=== PATIENT | female | born 1930 | race Caucasian/White ===

== ENCOUNTER → 2016-11-03 | Outpatient (CLI) | payer MEDICARE, OTHER ==
[~2016-11-03] MED LIST: ACET-2469 PO; ACET-77 PO; ASCO1TAB36 PO; ASP325T PO; ASP81TEC PO; ASPI-983 PO; Aspirin PO; BACL10TA PO; CALC-687 PO; CALC-80 PO; CALC-9 PO; CALC3.7S2 NS; CARV12.53 PO; CARV3.122 PO; CARV3.12T PO; CARV6.25 PO; CARV6.252 PO; CEFU500T5 PO; CLOP75TA28 PO; CRV25T; DOCU100C37 PO; Diazepam PO; ESTER C PO; ESTRACE; FENO145T20 PO; FISH OIL 1,2001 EAC1 PO; FRSM40T PO; FURO20TA4 PO; FURO40TA4 PO; GABA-488 PO; GLUC-174 PO; HYDR-3714 PO; Hydrocodone Bit/Acetaminophen PO; IRON1CAP9 PO; KETO-22 PO; LEVO112T55 PO; LEVO125T6 PO; LVT.112T PO; LVT.1T; MAG-59 PO; MAGN1TAB31 PO; MAGN400O7 PO; MAGN400T6 PO; METAMUCIL PO; METAMUCIL POWD283 GM PO; METO50TA7 PO; MG T1TAB PO; MGX400T; MTP50T PO; MULT1TAB63 PO; MULT1TAB69 PO; NAPR-243 PO; NAPR1TAB25 PO; NAPR220C11 PO; NFAMINITAB PO; Naproxen PO; OMEP20CA12 PO; OMG1KC PO; OSTEO BI-FLEX; PEG250PW; PNT40TEC; PNT40TEC PO; POLY119P PO; POTA99TA7 PO; POTASSIUM GLUCONATE PO; RMP5C PO; ROSU10TA12; ROSU10TA12 PO; TICA90TA PO; TRAM50TA2 PO; Tramadol Hcl PO; Trazodone Hcl PO; UMEC1BLS IH; [UNRECOGNIZED DRUG - CODE] PO; [UNRECOGNIZED DRUG - OTHER]
--- OUTSIDE RECORDS SUMMARY | 2016-11-03 13:05 | XMS REPORT | Continuity of Care Document ---
Author Author [facility] Organization [facility] Address Unknown Phone Unavailable Care Team Providers Care House Cleaner Name Role Phone ACOSTA HARPER MD PCP Insurance Providers Payer Name Policy Number Subscriber Name Relationship Wps Medicare [id number] Mary Polanco 18 Self / Same As Patient Comm Crossover Enter Ins Name [id number] Mary Polanco 18 Self / Same As Patient Advance Directives Directive Response Recorded Date/Time Advance Directives Yes 03/09/15 10:06am Health Care Power of Instructional Design Specialist Yes 03/09/15 10:06am Organ Donor No 03/09/15 10:06am Resuscitation Status Full Code 03/09/15 10:06am Problems Medical Problems Problem Onset Date Status Chest pain Unknown Active Fracture four ribs-closed Unknown Active Medications Medication Dose Route Sig Days/Qty Instructions Order Date Discontinued Date Status Levothyroxine Sodium 05/09/07 05/12/11 Discontinued Rosuvastatin Calcium 05/09/07 05/12/11 Discontinued Magnesium Oxide 05/09/07 05/12/11 Discontinued Furosemide 40 Mg PO DAILY @ 1200 05/09/07 Active Fish Oil 1,000 Mg PO THREE TIMES A DAY 05/09/07 10/31/13 Discontinued Aspirin 325 Mg PO DAILY 05/09/07 08/15/12 Discontinued [Virginie C] 1,000 Mg PO DAILY 05/09/07 10/31/13 Discontinued Multivitamins 1 Tab PO 1200 05/09/07 Active Ramipril 2.5 Mg PO DAILY 05/09/07 04/30/13 Discontinued Carvedilol 05/09/07 05/12/11 Discontinued Pantoprazole Sodium 05/09/07 05/12/11 Discontinued Polyethylene Glycol 05/09/07 05/12/11 Discontinued Carvedilol (Coreg) 1 Each PO TWICE A DAY 05/12/11 07/30/12 Discontinued Levothyroxine Sodium 112 Mcg PO DAILY 05/12/11 03/05/15 Discontinued Inulin 197.2 Gm PO DAILY 05/12/11 10/31/13 Discontinued Naproxen 1 Each PO TID PRN 20 Qty FOR PAIN 05/12/11 07/30/12 Discontinued Magnesium Oxide 400 Mg PO DAILY 10/20/11 07/30/12 Discontinued Potassium 99 Mg PO 1200 10/20/11 Active Baclofen (Lioresal) 1 Each PO THREE TIMES A DAY PRN 14 Qty 10/20/11 Discontinued Ketorolac Tromethamine 10 Mg PO EVERY 8HRS PRN 15 Qty 10/20/11 Discontinued Carvedilol 1 Each PO TWICE A DAY 07/30/12 08/14/12 Discontinued Naproxen Sodium 440 Mg PO DAILY 07/30/12 08/15/12 Discontinued Metoprolol Succinate 50 Mg PO BEDTIME 08/14/12 04/30/13 Discontinued Aspirin 81 Mg PO 1200 08/15/12 Active Pantoprazole Sod 40 Mg PO DAILY 08/15/12 04/30/13 Discontinued Ticagrelor 90 Mg PO TWICE A DAY 08/15/12 04/30/13 Discontinued Rosuvastatin Calcium 10 Mg PO DAILY 08/15/12 04/30/13 Discontinued Omeprazole 20 Mg PO DAILY 04/30/13 Active Naproxen Sodium 440 Mg PO DAILY PRN PAIN 04/30/13 03/15/15 Discontinued Carvedilol (Coreg) 3.125 Mg PO TWICE A DAY 04/30/13 03/15/15 Discontinued Clopidogrel Bisulfate 75 Mg PO DAILY @ 1200 04/30/13 03/05/15 Discontinued [place]-3 Fatty Acids/Fish Oil 1,200 Mg PO 1200,HS 10/31/13 Active [Estrace] 10/31/13 10/31/13 Discontinued [Fenfibrate] 10/31/13 10/31/13 Discontinued [Metamucil] 1 Tab PO DAILY 10/31/13 10/31/13 Discontinued Calcium Carbonate/Vitamin D3 1 Tab PO DAILY 10/31/13 03/05/15 Discontinued Gluc/Pascual-MSM#1/C/Ollie/Buster/Bor 1 Tab PO 1200 10/31/13 Active Fenofibrate Nanocrystallized 145 Mg PO BEDTIME 10/31/13 Active Ascorbate Calcium/Bioflav 1,000 Mg PO DAILY 10/31/13 10/31/13 Discontinued Psyllium Seed/Aspartame 1 Tbs PO BEDTIME 10/31/13 Active Al Hydrox/Mg Hydrox/Simeth 2 Tab PO TWICE A DAY PRN INDIGESTION NEEDED FOR INDIGESTION 10/31/13 03/05/15 Discontinued Ramipril 5 Mg PO DAILY 30 Qty 11/03/13 03/05/15 Discontinued Cefuroxime Axetil (Ceftin) 1 Each PO TWICE A DAY 7 Days 11/03/1303/05 Discontinued Levothyroxine Sodium 125 Mcg PO DAILY 03/05/15 Active Calcium Carbonate/Mag Oxide/Zn 1 Tab PO 1200 03/05/15 Active Vitamin C/Vitamin E 1 Tab PO 1200 03/05/15 Active Carvedilol 6.25 Mg PO TWICE A DAY 30 Qty 03/15/15 Active [Naproxen] 250 Mg PO TWICE A DAY WITH MEALS 60 Qty 03/15/15 Active [Tramadol Hcl] 50 Mg PO FOUR TIMES DAILY PRN pain 60 Qty 03/15/15 Active [Trazodone Hcl] 50 Mg PO BEDTIME 30 Qty 03/15/15 Active Social History Social History Problem Response Recorded Date/Time Alcohol Use Denies Use 03/09/2015 10:07am Recreational Drug Use No 03/09/2015 10:07am Recent Foreign Travel No 10/31/2013 3:00pm Recent Infectious Disease Exposure No 03/09/2015 10:07am Hospitalization with Isolation Denies 03/15/2015 1:17pm Sexually Transmitted Disease No 03/09/2015 10:07am HIV/AIDS No 03/09/2015 10:07am Do you dip or chew tobacco? No 03/09/2015 10:09am Hospital Discharge Instructions Patient Instructions Physician Instructions Patient Instructions/FollowUp: follow up with ravi in two weeks call for any acute concerns, no lifting greater than 5 pounds x 1 week, then 10 pounds in two weeks Patient Problems: rib fracture hypertension weakness insomnia [place]IA [place], [place] DISCHARGE ORDERS Height (Feet): 5 Height (Inches): 5.00 Weight (Pounds): 148 Weight (Ounces): 5.0 Reason Pt Homebound yes - pt cannot drive I Have Seen Pt Izfx-le-Wwse: Yes Date of Face to Face: March 15, 2015 Discharged To: Home Diagnosis/Conditions HH Order: rib fracture hypertension weakness insomnia *I certify that based on my findings, the following services are medically necessary Home Health Services: Services: Nursing Services, Non Destructive Testing Specialist-Evaluate & Treat, Physical Therapy-Evaluate & Treat My clinical findings support the need for the above services; see Diagnosis. Dicharge Diet: Regular Diet Daily Activity as Tolerated: Yes New, Converted, or Re-newed RX: Call to Patient Pharmacy I certify that this patient is under my care and that I, a nurse practitioner or a physician; a physician's assistant working with me, had a face to face encounter that - meets the physician face to face encounter requirements with this patient as dated. Care Plan Patient Instructions:: follow up with ravi in two weekscall for any acute concerns, no lifting greater than 5 pounds x 1 week,then 10 pounds in two weeks Patient Problems: rib fracturehypertensionweaknessinsomnia Plan of Care Discharge Date 03/15/15 11:30am Disposition 30 STILL A PATIENT Instructions/Education Provided Rib Fracture (DC) Prescriptions See Medications Section Referrals ravi (Unspecified) 2 Weeks Functional Status Query Response Date Recorded Patient Orientation Normal For Age March 15, 2015 11:54am Allergies, Adverse Reactions, Alerts Allergen Type Severity Reaction Status Last Updated NKANo Known Allergies Allergy Unknown Active 05/09/07 Immunizations Name Given Type Date of Pneumonia Vaccine 07/29/11 Historical Date of Influenza Vaccine 09/01/13 Historical Vital Signs Acute Vital Signs Vital Response Date/Time Temperature (Fahrenheit) 97.5 degrees F (97.6 - 99.5) Temperature (Calculated Celsius) 36.22839 degrees C (36.4 - 37.5) Temperature Source Temporal Pulse Rate (adult) 72 bpm (60 - 90) Respiratory Rate 18 bpm (12 - 24) O2 Sat by Pulse Oximetry 95 % (88 - 100) Blood Pressure 156/78 mm Hg Pain Pain Intensity 6 Height (Feet) 5 feet Height (Inches) 5.00 inches Height (Calculated Centimeters) 165.296182 cm Weight (Pounds) 148 pounds Weight (Ounces) 5.0 oz Weight (Calculated Grams) 00855.419 gm Weight (Calculated Kilograms) 67.980117 kilograms Calculated BMI 24.63 Results Laboratory Results Test Name Result Units Flags Reference Collection Date/Time Result Date/ Time Comments White Blood Count 7.4 10^3/uL 4.3-11.0 03/08/2015 4:55am 03/08/2015 5: 59am Red Blood Count 4.17 10^6/uL L 4.35-5.85 03/08/2015 4:55am 03/08/2015 5: 59am Hemoglobin 12.4 G/DL 11.5-16.0 03/08/2015 4:55am 03/08/2015 5:59am Hematocrit 37 % 35-52 03/08/2015 4:55am 03/08/2015 5:59am Mean Corpuscular Volume 89 FL 80-99 03/08/2015 4:55am 03/08/2015 5: 59am Mean Corpuscular Hemoglobin 30 PG 25-34 03/08/2015 4:55am 03/08/2015 5: 59am Mean Corpuscular Hemoglobin Concent 33 G/DL 32-36 03/08/2015 4:55am 08/2015 5:59am Red Cell Distribution Width 13.7 % 10.0-14.5 03/08/2015 4:55am 2014 5:59am Platelet Count 208 10^3/uL 130-400 03/08/2015 4:55am 03/08/2015 5:59am Mean Platelet Volume 11.2 FL H 7.4-10.4 03/08/2015 4:55am 03/08/2015 5: 59am Neutrophils (%) (Auto) 70 % 42-75 03/08/2015 4:55am 03/08/2015 5:59am Lymphocytes (%) (Auto) 19 % 12-44 03/08/2015 4:55am 03/08/2015 5:59am Monocytes (%) (Auto) 10 % 0-12 03/08/2015 4:55am 03/08/2015 5:59am Eosinophils (%) (Auto) 1 % 0-10 03/08/2015 4:55am 03/08/2015 5:59am Basophils (%) (Auto) 0 % 0-10 03/08/2015 4:55am 03/08/2015 5:59am Neutrophils # (Auto) 5.2 X 10^3 1.8-7.8 03/08/2015 4:55am 03/08/2015 5: 59am Lymphocytes # (Auto) 1.4 X 10^3 1.0-4.0 03/08/2015 4:55am 03/08/2015 5: 59am Monocytes # (Auto) 0.7 X 10^3 0.0-1.0 03/08/2015 4:55am 03/08/2015 5: 59am Eosinophils # (Auto) 0.1 10^3/uL 0.0-0.3 03/08/2015 4:55am 03/08/2015 5 :59am Basophils # (Auto) 0.0 10^3/uL 0.0-0.1 03/08/2015 4:55am 03/08/2015 5: 59am Prothrombin Time 13.4 SEC 12.2-14.7 03/05/2015 9:13pm 03/05/2015 9: 59pm INR Comment 1.0 0.8-1.4 03/05/2015 9:13pm 03/05/2015 9:59pm INTERPRETIVE DATA SUGGESTED THERAPEUTIC RANGE FOR INR'S: VENOUS THROMBOSIS, PULMONARY EMBOLISM, OR PREVENTION OF SYSTEMIC EMBOLISM (EG. IN ATRIAL FIBRILLATION): 2.0 - 3.0 MECHANICAL PROSTHETIC HEART VALVES: 2.5 - 3.5* *NOTE: INR'S UP TO 4.5 MAY BE NECESSARY IN SELECTED GROUPS OF HIGH RISK PATIENTS. SIXTH CITIZEN [place] COLLEGE OF CHEST PHYSICIANS CONSENSUS CONFERENCE ON ANTITHROMBOTIC THERAPY (2000). Urine Color YELLOW 03/05/2015 6:00pm 03/05/2015 6:44pm Urine Clarity CLEAR 03/05/2015 6:00pm 03/05/2015 6:44pm Urine pH 7 5-9 03/05/2015 6:00pm 03/05/2015 6:44pm Urine Specific [place] 1.005 * 1.016-1.022 03/05/2015 6:00pm 2014 6:44pm Urine Protein NEGATIVE NEGATIVE 03/05/2015 6:00pm 03/05/2015 6:44pm Urine Glucose (UA) NEGATIVE NEGATIVE 03/05/2015 6:00pm 03/05/2015 6: 44pm Urine RBC (Auto) NEGATIVE NEGATIVE 03/05/2015 6:00pm 03/05/2015 6: 44pm Urine Ketones NEGATIVE NEGATIVE 03/05/2015 6:00pm 03/05/2015 6:44pm Urine Nitrite NEGATIVE NEGATIVE 03/05/2015 6:00pm 03/05/2015 6:44pm Urine Bilirubin NEGATIVE NEGATIVE 03/05/2015 6:00pm 03/05/2015 6: 44pm Urine Urobilinogen NORMAL MG/DL NORMAL 03/05/2015 6:00pm 03/05/2015 6: 44pm Urine Leukocyte Esterase 1+ * NEGATIVE 03/05/2015 6:00pm 03/05/2015 6: 44pm Urine RBC RARE /HPF 03/05/2015 6:00pm 03/05/2015 6:44pm Urine WBC 2-5 /HPF 03/05/2015 6:00pm 03/05/2015 6:44pm Urine Bacteria FEW /HPF * 03/05/2015 6:00pm 03/05/2015 6:44pm Urine Squamous Epithelial Cells 0-2 /HPF 03/05/2015 6:00pm 2014 6:44pm Urine Crystals NONE /LPF 03/05/2015 6:00pm 03/05/2015 6:44pm Urine Casts NONE /LPF 03/05/2015 6:00pm 03/05/2015 6:44pm Urine Mucus NEGATIVE /LPF 03/05/2015 6:00pm 03/05/2015 6:44pm Urine Culture Indicated NO 03/05/2015 6:00pm 03/05/2015 6:44pm Sodium Level 138 MMOL/L 135-145 03/08/2015 4:55am 03/08/2015 6:20am Potassium Level 3.6 MMOL/L 3.6-5.0 03/08/2015 4:55am 03/08/2015 6:20am Chloride Level 106 MMOL/L 98-107 03/08/2015 4:55am 03/08/2015 6:20am Carbon Dioxide Level 21 MMOL/L 21-32 03/08/2015 4:55am 03/08/2015 6: 20am Blood Urea Nitrogen 16 MG/DL 7-18 03/08/2015 4:55am 03/08/2015 6:20am Creatinine 0.86 MG/DL 0.60-1.30 03/08/2015 4:55am 03/08/2015 6:20am BUN/Creatinine Ratio 19 03/08/2015 4:55am 03/08/2015 6:20am Estimat Glomerular Filtration Rate > 60 03/08/2015 4:55am 2014 6:20am GFR INTERPRETIVE DATA UNITS FOR ESTIMATED GFR (eGFR): mL/min/1.73 M2 REFERENCE RANGE FOR ESTIMATED GFR (eGFR) eGFR NORMAL eGFR >60 MODERATELY DECREASED eGFR 30-59 SEVERLY DECREASED eGFR 15-29 KIDNEY FAILURE <15 (OR DIALYSIS) Glucose Level 108 MG/DL H 70-105 03/08/2015 4:55am 03/08/2015 6:20am Glucometer 119 MG/DL H 70-110 03/05/2015 8:08am 03/05/2015 8:15am Calcium Level 9.5 MG/DL 8.5-10.1 03/08/2015 4:55am 03/08/2015 6:20am Total Bilirubin 0.6 MG/DL 0.1-1.0 03/08/2015 4:55am 03/08/2015 6:20am Alkaline Phosphatase 54 U/L 40-136 03/08/2015 4:55am 03/08/2015 6:20am Aspartate Amino Transf (AST/SGOT) 18 U/L 5-34 03/08/2015 4:55am 2014 6:20am Alanine Aminotransferase (ALT/SGPT) 9 U/L 0-55 03/08/2015 4:55am 2014 6:20am Total Protein 6.2 G/DL L 6.4-8.2 03/08/2015 4:55am 03/08/2015 6:20am Albumin 3.6 G/DL 3.2-4.5 03/08/2015 4:55am 03/08/2015 6:20am White Blood Count 7.3 10^3/uL 4.3-11.0 03/10/2015 4:37am 03/10/2015 5: 06am Red Blood Count 3.97 10^6/uL L 4.35-5.85 03/10/2015 4:37am 03/10/2015 5: 06am Hemoglobin 11.6 G/DL 11.5-16.0 03/10/2015 4:37am 03/10/2015 5:06am Hematocrit 36 % 35-52 03/10/2015 4:3703/10/2015 5:06am Mean Corpuscular Volume 89 FL 80-99 03/10/2015 4:3703/10/2015 5: 06am Mean Corpuscular Hemoglobin 29 PG 25-34 03/10/2015 4:3703/10/2015 5: 06am Mean Corpuscular Hemoglobin Concent 33 G/DL 32-36 03/10/2015 4:37 5:06am Red Cell Distribution Width 13.9 % 10.0-14.5 03/10/2015 4:372014 5:06am Platelet Count 216 10^3/uL 130-400 03/10/2015 4:3703/10/2015 5:06am Mean Platelet Volume 11.0 FL H 7.4-10.4 03/10/2015 4:3703/10/2015 5: 06am Neutrophils (%) (Auto) 57 % 42-75 03/10/2015 4:3703/10/2015 5:06am Lymphocytes (%) (Auto) 29 % 12-44 03/10/2015 4:3703/10/2015 5:06am Monocytes (%) (Auto) 11 % 0-12 03/10/2015 4:3703/10/2015 5:06am Eosinophils (%) (Auto) 3 % 0-10 03/10/2015 4:3703/10/2015 5:06am Basophils (%) (Auto) 0 % 0-10 03/10/2015 4:3703/10/2015 5:06am Neutrophils # (Auto) 4.1 X 10^3 1.8-7.8 03/10/2015 4:3703/10/2015 5: 06am Lymphocytes # (Auto) 2.1 X 10^3 1.0-4.0 03/10/2015 4:3703/10/2015 5: 06am Monocytes # (Auto) 0.8 X 10^3 0.0-1.0 03/10/2015 4:3703/10/2015 5: 06am Eosinophils # (Auto) 0.2 10^3/uL 0.0-0.3 03/10/2015 4:3703/10/2015 5 :06am Basophils # (Auto) 0.0 10^3/uL 0.0-0.1 03/10/2015 4:3703/10/2015 5: 06am Sodium Level 136 MMOL/L 135-145 03/10/2015 4:3703/10/2015 5:32am Potassium Level 3.7 MMOL/L 3.6-5.0 03/10/2015 4:3703/10/2015 5:32am Chloride Level 108 MMOL/L H 98-107 03/10/2015 4:3703/10/2015 5:32am Carbon Dioxide Level 20 MMOL/L L 21-03/10/2015 4:3703/10/2015 5: 32am Blood Urea Nitrogen 18 MG/DL 7-18 03/10/2015 4:3703/10/2015 5:32am Creatinine 0.85 MG/DL 0.60-1.30 03/10/2015 4:3703/10/2015 5:32am BUN/Creatinine Ratio 21 03/10/2015 4:3703/10/2015 5:32am Estimat Glomerular Filtration Rate > 60 03/10/2015 4:372014 5:32am GFR INTERPRETIVE DATA UNITS FOR ESTIMATED GFR (eGFR): mL/min/1.73 M2 REFERENCE RANGE FOR ESTIMATED GFR (eGFR) eGFR NORMAL eGFR >60 MODERATELY DECREASED eGFR 30-59 SEVERLY DECREASED eGFR 15-29 KIDNEY FAILURE <15 (OR DIALYSIS) Glucose Level 104 MG/DL 70-105 03/10/2015 4:3703/10/2015 5:32am Calcium Level 8.9 MG/DL 8.5-10.1 03/10/2015 4:3703/10/2015 5:32am Total Bilirubin 0.4 MG/DL 0.1-1.0 03/10/2015 4:3703/10/2015 5:32am Alkaline Phosphatase 54 U/L 40-136 03/10/2015 4:3703/10/2015 5:32am Aspartate Amino Transf (AST/SGOT) 15 U/L 5-34 03/10/2015 4:372014 5:32am Alanine Aminotransferase (ALT/SGPT) 8 U/L 0-55 03/10/2015 4:37am 2014 5:32am Total Protein 5.7 G/DL L 6.4-8.2 03/10/2015 4:37am 03/10/2015 5:32am Albumin 3.3 G/DL 3.2-4.5 03/10/2015 4:37am 03/10/2015 5:32am Procedures No known history of procedures. Encounters Encounter Location Date/Time Discharged Inpatient Via [facility] 03/09/15 9:13am Discharged Inpatient Via [facility] 03/05/15 8:20am
--- NOTE | 2016-11-05 16:08 | ECHOCARDIOGRAPHY REPORT ---
PROCEDURE PHYSICIAN: NARENDRA CURRIE DATE OF PROCEDURE: 11/03/2016 TWO DIMENSIONAL ECHOCARDIOGRAM REPORT PRIMARY PHYSICIAN: OTHER PHYSICIAN: REFERRING PHYSICIAN: Dr. Татьяна Payan ORDERING PHYSICIAN: INDICATION FOR THE PROCEDURE: 1. Coronary artery disease. 2. Hypertension. MEASUREMENTS DERIVED VALUES LV DIAMETER (LAX) NORMALS NORMALS Diastolic 3.7 (3.6-5.2) Eject. Fract. 60% (60%+/-6%) Systolic (2.3-3.9) Diastolic Vol. % Shortening (0.22-0.42) Systolic Vol. Aortic Root IVS THICKNESS Diastolic 1.2 (0.6-1.1) LVPW THICKNESS Diastolic 1.2 (0.6-1.1) LA DIAMETER Systolic 3.2 (2.1-3.7) FINDINGS: 1. Technical quality is good. 2. The left ventricle is normal in size with normal contractility. Systolic function appeared to be normal. Estimated ejection fraction 60%. 3. The left atrium is normal in size. No clot or thrombus were seen within the left atrium. 4. The right atrium and right ventricle are normal in size. No clot or thrombus were seen within the right side. 5. Mitral valve is normal in morphology with mild mitral regurgitation noted by color Doppler flow. No mitral valve prolapse. No mitral valve stenosis. 6. Aortic valve is trileaflet with normal opening and closing pattern. No significant aortic stenosis or regurgitation was seen. 7. Tricuspid valve is normal in morphology with mild tricuspid regurgitation noted by color Doppler flow. Doppler across tricuspid valve estimated pulmonary artery pressure of 34+ right atrial pressure. 8. Pulmonic valve is functioning normally. 9. No pericardial effusion. IN CONCLUSION: 1. Normal left ventricular size and systolic function. Estimated ejection fraction 60%. 2. Mild mitral and tricuspid regurgitation. 3. Estimated pulmonary artery pressure of 40 mmHg. Job ID: [id number] Dictated Date: 11/04/2016 12:44:00 Frame Hand Date: 11/05/2016 16:00:06 / saba
== END ==
LOC: CARD 12:55
PROVIDERS: ATTEND Physician Assistant
DX: I25.10 Atherosclerotic heart disease of native coronary artery without angina pectoris (principal); I10 Essential (primary) hypertension; I44.7 Left bundle-branch block, unspecified; E78.2 Mixed hyperlipidemia
CPT/HCPCS: 93306

== ENCOUNTER → 2016-12-14 | Outpatient (CLI) | payer MEDICARE, OTHER ==
[~2016-12-14] VITALS: Ht 162.6 cm; Wt 59.2 kg
[~2016-12-14] MED LIST changes: +DENOSUMAB 60 MG/1 ML (PROLIA) SQ SCH
--- OUTSIDE RECORDS SUMMARY | 2016-12-14 13:04 | XMS REPORT | Continuity of Care Document ---
Author Author [facility] Organization [facility] Address Unknown Phone Unavailable Care Team Providers Care Metal Cnc Operator Name Role Phone ACOSTA HARPER MD PCP Insurance Providers Payer Name Policy Number Subscriber Name Relationship Wps Medicare [id number] Mary Polanco 18 Self / Same As Patient Comm Crossover Enter Ins Name [id number] Mary Polanco 17 Self / Same As Patient Advance Directives Directive Response Recorded Date/Time Advance Directives Yes 03/09/15 10:06am Health Care Power of [place] Edger Yes 03/09/15 10:06am Organ Donor No 03/09/15 [...] PO DAILY @ 1200 04/30/13 03/05/15 Discontinued [place]-3 Fatty Acids/Fish Oil 1,200 Mg PO 1200,HS [...] Problems: rib fracture hypertension weakness insomnia [place]IA [place], [place] DISCHARGE ORDERS Height (Feet): 5 Height (Inches): 5.00 Weight (Pounds): 148 Weight (Ounces): 5.0 Reason Pt Homebound yes - pt cannot drive I Have Seen Pt Gcae-pf-Pvao: Yes Date of Face to Face: March 15, 2015 Discharged To: Home Diagnosis/Conditions HH Order: rib fracture hypertension weakness insomnia *I certify that based on my findings, the following services are medically necessary Home Health Services: Services: Nursing Services, Corporate Affairs Manager-Evaluate & Treat, Physical Therapy-Evaluate & Treat My clinical findings support the need for the above services; see Diagnosis. Dicharge Diet: Regular Diet Daily Activity as Tolerated: Yes New, Converted, or Re-newed RX: Call to Patient Pharmacy I certify that this patient is under my care and that I, a nurse practitioner or a physician; a operating room assistant working with me, had a face [...] F (97.6 - 99.5) Temperature (Calculated Celsius) 36.55713 degrees C (36.4 - 37.5) Temperature Source Temporal Pulse Rate (adult) 72 bpm (60 - 90) Respiratory Rate 18 bpm (12 - 24) O2 Sat by Pulse Oximetry 95 % (88 - 100) Blood Pressure 156/78 mm Hg Pain Pain Intensity 6 Height (Feet) 5 feet Height (Inches) 5.00 inches Height (Calculated Centimeters) 165.201020 cm Weight (Pounds) 148 pounds Weight (Ounces) 5.0 oz Weight (Calculated Grams) 85250.419 gm Weight (Calculated Kilograms) 67.700333 kilograms Calculated BMI 24.63 Results Laboratory Results [...] SELECTED GROUPS OF HIGH RISK PATIENTS. [place] COLLE[employer] OF CHEST PHYSICIANS CONSENSUS CONFERENCE ON ANTITHROMBOTIC THERAPY (2000). Urine Color YELLOW 03/05/2015 6:00pm 03/05/2015 6:44pm Urine Clarity CLEAR 03/05/2015 6:00pm 03/05/2015 6:44pm Urine pH 7 5-9 03/05/2015 6:00pm 03/05/2015 6:44pm Urine Specific [place] 1.005 * 1.016-1.022 03/05/2015 6:00pm 2014 6:44pm [...] Encounters Encounter Location Date/Time Discharged Inpatient Via [facility] 03/09/15 9:13am Discharged Inpatient Via [facility] 03/05/15 8:20am
[2016-12-14 13:32] VITALS: BP 136/90
== END ==
LOC: SDC 12:55
PROVIDERS: ATTEND Family Medicine
DX: M81.0 Age-related osteoporosis without current pathological fracture (principal)
CPT/HCPCS: 96372

== ENCOUNTER 2017-03-28 19:08 | Emergency (ER) | payer MEDICARE, OTHER ==
[~2017-03-28] VITALS: Ht 152.4 cm; Wt 63.5 kg
[~2017-03-28 19:08] MED LIST changes: -DENOSUMAB 60 MG/1 ML (PROLIA) SQ SCH
[2017-03-28] MEDS ORDERED: potassium PO (19:40)
[2017-03-28] MEDS ORDERED: PSYL660P17 PO (19:40)
[2017-03-28] MEDS ORDERED: DULO60CA6 PO (19:40)
[2017-03-28] MEDS ORDERED: DENO60DI SQ (19:40)
[2017-03-28] MEDS ORDERED: FURO-124 PO (19:40)
[2017-03-28] MEDS ORDERED: FAMOTIDINE 20MG/2ML IV (PEPCID) IV STA (19:51)
[2017-03-28] MEDS ORDERED: diphenhydrAMINE 50 MG/ML INJ (BENADRYL) IV STA (19:51)
[2017-03-28] MEDS ORDERED: methylPREDNISolone 125 MG (Solu-MEDROL) VIAL IV STA (19:51)
--- NOTE | 2017-03-28 19:53 | ED General ---
General Chief Complaint: Skin/Wound Problems Stated Complaint: SPIDER BITE LEFT LEG Nursing Triage Note: pt noticed bite to left medial knee on Sunday. itching et redness worsening yesterday. spreading up thigh et down calf today with weeping. Nursing Sepsis Screen: Possible Sepsis Risk Source of Information: Patient, Other (friend) Exam Limitations: No Limitations History of Present Illness Time Seen by Provider: 19:40 Initial Comments 86-year-old female patient presents to the emergency department complaints of possible bite to the left medial knee with onset Sunday. Reports today noticed increased redness, swelling, and itching. Denies pain. Does have new- onset blisters around the bite site. Timing/Duration: 4-5 Days, Getting Worse Severity: Moderate Allergies and Home Medications Allergies Coded Allergies: NKANo Known Allergies (Verified Allergy, Unknown, 05/09/07) codeine (Unverified Adverse Reaction, Unknown, 03/28/17) Home Medications Acetaminophen/Diphenhydramine 1 Each Tablet, 1 TAB PO HS, #0 Prescribed by: CELESTINO MOORE on 12/15/15 184 Aspirin 81 Mg Tablet.dr, 81 MG PO DAILY, (Reported) Calcium Carbonate/Vitamin D3 1 Each Tablet, 1 TAB PO BID, (Reported) Carvedilol 6.25 Mg Tablet, 6.25 MG PO BID, (Reported) Clindamycin HCl 300 Mg Capsule, 300 MG PO QID, #40 Ref 0 Prescribed by: SERGIO HOLLOWAY on 03/28/172119 Dapsone 25 Mg Tablet, 50 MG PO BID, #20 Ref 0 Prescribed by: SERGIO HOLLOWAY on 03/28/172119 Denosumab 60 Mg/1 Ml Disp.syrin, 60 MG SQ 2x/year, (Reported) Duloxetine HCl 60 Mg Capsule.dr, 60 MG PO DAILY, (Reported) Fenofibrate Nanocrystallized 145 Mg Tablet, 145 MG PO HS, (Reported) Furosemide 40 Mg Tablet, 40 MG PO every other day, (Reported) Levothyroxine Sodium 112 Mcg Tablet, 112 MCG PO DAILY, (Reported) Multivitamin 1 Each Tablet, 1 TAB PO DAILY, (Reported) [place]-3 Fatty Acids/Fish Oil 1 Each Capsule, 1,200 MG PO BID, (Reported) Omeprazole 20 Mg Capsule.dr, 20 MG PO DAILY, (Reported) Psyllium Husk 660 Gm Powder, 660 GM PO DAILY, (Reported) Sulfamethoxazole/Trimethoprim 1 Each Tablet, 1 EACH PO BID, #20 Ref 0 Prescribed by: SERGIO HOLLOWAY on 03/28/170 [potassium] , 595 MG PO DAILY, (Reported) Constitutional: No chills, No diaphoresis, No fever, malaise EENTM: No mouth swelling, No nose congestion, No throat pain, No throat swelling Respiratory: No cough, No short of breath, No stridor, No wheezing Cardiovascular: no symptoms reported Gastrointestinal: No abdominal pain, No diarrhea, No nausea, No vomiting Genitourinary: no symptoms reported Musculoskeletal: see HPI Skin: see HPI Psychiatric/Neurological: Denies Headache, Denies Numbness, Denies Paresthesia , Denies Tingling All Other Systems Reviewed Negative Unless Noted: Yes (Negative excepted noted.) Past Lfbwkkk-Pmzjqj-Acglxy Hx Patient Social History Alcohol Use: Denies Use Recreational Drug Use: No Smoking Status: Never a Smoker Former Smoker/When Quit: March 08, 2010 2nd Hand Smoke Exposure: No Recent Foreign Travel: No Contact w/Someone Who Travel: No Recent Infectious Disease Expo: No Recent Hopitalizations: Yes Immunizations Up To Date Tetanus Booster (TDap): Unknown PED Vaccines UTD: No Date of Pneumonia Vaccine: Jul 29, 2013 Date of Influenza Vaccine: Jul 29, 2015 Surgeries HX Surgeries: Yes (LEFT HIP FX / ORIF, HIATAL HERNIA REPAIR, CORONARY STENT X 1 07/2012) Surgeries: Abdominal, Appendectomy, Cardiac, Coronary Stent, Orthopedic Respiratory Hx Respiratory Disorders: No Cardiovascular Hx Cardiac Disorders: Yes (STENTS) Cardiac Disorders: Chronic Edema/Swelling, Coronary Artery Disease, Heart Attack, High Cholesterol, Hypertension Neurological Hx Neurological Disorders: Yes (PERIPHERAL NEUROPATHY--FEET) Neurological Disorders: Neuropathy 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 System Hx 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 Disorders: No Sexually Transmitted Disease: No HIV/AIDS: No Female 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 Disorders: 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 Genitourinary Hx Genitourinary Disorders: No Gastrointestinal Hx Gastrointestinal Disorders: Yes (S/P HIATAL HERNIA REPAIR) Gastrointestinal Disorders: Gastroesophageal Reflux, Diverticulosis, Hiatal Hernia Musculoskeletal Hx Musculoskeletal Disorders: Yes (RIBS (02/2015), L HIP FX ORIF, SPINAL STENOSIS, POOR BALANCE/FREQUENT FALLS) Musculoskeletal Disorders: Osteoporosis, Arthritis, Back Injury, Chronic Back Pain, Fractures Endocrine Hx Endocrine Disorders: Yes Endocrine Disorders: Hypothyroidsim HEENT HX ENT Disorders: No Loss of Vision: Denies Hearing Impairment: Denies Cancer Hx Cancer: No Psychosocial Hx Psychiatric Problems: No Integumentary HX Skin/Integumentary Disorder: No Blood Transfusions Hx Blood Disorders: No Adverse Reaction to a Blood Tr: No Reviewed Nursing Assessment Reviewed/Agree w Nursing PMH: Yes Family Medical History Significant Family History: Heart Disease, Cancer Family Medial History: Cancer 09 BROTHER (leukemia) daughter (breast cancer) Cancer of colon 09 SISTER Myocardial infarction 03 FATHER Parkinson's disease 09 BROTHER Physical Exam Vital Signs Vital Sign - Last 12Hours 03/28/17 03/28/17 19:29 22:23 Temp 99.5 Pulse 84 Resp 28 B/P (MAP) 189/95 Pulse Ox 93 Capillary Refill : Less Than 3 Seconds General Appearance: No Apparent Distress, WD/WN HEENT: PERRL/EOMI, Pharynx Normal Neck: Normal Inspection, Supple Respiratory: Lungs Clear, Normal Breath Sounds, No Respiratory Distress Cardiovascular: Regular Rate, Rhythm, No Murmur, Normal Peripheral Pulses Extremity: Normal Capillary Refill, Non Tender, Inflammation (erythema, warmth of the LLE extending from the proximal thigh to the ankle. 3x3 cm area of necrosis with central puncture site noted on the medial left knee. 2 small vesicles inferior to the necrosis.) Neurologic/Psychiatric: Alert, Oriented x3, No Motor/Sensory Deficits, Normal Mood/Affect Skin: Warm/Dry, Other (erythema, warmth of the LLE extending from the proximal thigh to the ankle. 3x3 cm area of necrosis with central puncture site noted on the medial left knee. 2 small vesicles inferior to the necrosis.) Progress/Results/Core Measures Results/Orders Lab Results Laboratory Tests Test 03/28/17 20:10 Range/Units White Blood Count 8.1 4.3-11.0 10^3/uL Red Blood Count 4.31 L 4.35-5.85 10^6/uL Hemoglobin 12.9 11.5-16.0 G/DL Hematocrit 39 35-52 % Mean Corpuscular Volume 91 80-99 FL Mean Corpuscular Hemoglobin 30 25-34 PG Mean Corpuscular Hemoglobin Concent 33 32-36 G/DL Red Cell Distribution Width 14.7 H 10.0-14.5 % Platelet Count 230 130-400 10^3/uL Mean Platelet Volume 11.5 H 7.4-10.4 FL Neutrophils (%) (Auto) 59 42-75 % Lymphocytes (%) (Auto) 29 12-44 % Monocytes (%) (Auto) 10 0-12 % Eosinophils (%) (Auto) 3 0-10 % Basophils (%) (Auto) 0 0-10 % Neutrophils # (Auto) 4.8 1.8-7.8 X 10^3 Lymphocytes # (Auto) 2.3 1.0-4.0 X 10^3 Monocytes # (Auto) 0.8 0.0-1.0 X 10^3 Eosinophils # (Auto) 0.2 0.0-0.3 10^3/uL Basophils # (Auto) 0.0 0.0-0.1 10^3/uL Sodium Level 137 135-145 MMOL/L Potassium Level 3.9 3.6-5.0 MMOL/L Chloride Level 106 98-107 MMOL/L Carbon Dioxide Level 20 L 21-32 MMOL/L Anion Gap 11 5-14 MMOL/L Blood Urea Nitrogen 30 H 7-18 MG/DL Creatinine 1.17 0.60-1.30 MG/DL Estimat Glomerular Filtration Rate 44 BUN/Creatinine Ratio 26 Glucose Level 131 H 70-105 MG/DL Calcium Level 9.5 8.5-10.1 MG/DL Total Bilirubin 0.3 0.1-1.0 MG/DL Aspartate Amino Transf (AST/SGOT) 15 5-34 U/L Alanine Aminotransferase (ALT/SGPT) 10 0-55 U/L Alkaline Phosphatase 25 L 40-136 U/L C-Reactive Protein High Sensitivity 0.19 0.00-0.50 MG/DL Total Protein 6.7 6.4-8.2 G/DL Albumin 3.9 3.2-4.5 G/DL My Kayli Milan - SERGIO HOLLOWAY Cbc With Automated Diff (03/28/17 19:51) Comprehensive Metabolic Panel (03/28/17 19:51) Hs C Reactive Protein (03/28/17 19:51) Saline Lock/Iv-Start (03/28/17 19:51) Famotidine Injection (Pepcid Injection) (03/28/17 19:51) Diphenhydramine Injection (Benadryl Inje (03/28/17 19:51) Methylprednisolone Sod Succ (Solu-Medrol (03/28/17 19:51) Dipht,Pertuss(Acell),Tet Adult (Boostrix (03/28/17 20:01) Dipht,Pertuss(Acell),Tet Adult (Boostrix (03/28/17 19:58) Clindamycin Injection (Cleocin Injection (03/28/17 21:15) Medications Given in ED Current Medications Medications Dose Ordered Sig/Chica Route Start Time Stop Time Status Last Admin Dose Admin Clindamycin Phosphate 900 mg/ Sodium Chloride 56 ml @ 100 mls/hr ONCE ONCE IV 03/28/17 21:15 03/28/17 21:48 DC 03/28/17 21:37 100 MLS/HR Vital Signs/I&O Vital Sign - Last 12Hours 03/28/17 03/28/17 19:29 22:23 Temp 99.5 Pulse 84 81 Resp 28 16 B/P (MAP) 189/95 Pulse Ox 93 Blood Pressure Mean: 126 Departure Communication Progress Notes Laboratory findings discussed with the patient. Patient shows slight improvement with IV medications. Due to the amount of erythema and warmth, we' ll plan on placing patient on oral antibiotics upon discharge. Patient to be given 1 dose of Cleocin IV prior to discharge. Patient instructed to follow-up with Dr. Payan tomorrow for wound recheck and if unable to be seen she is to return to the emergency department. All return precautions were discussed with the patient as described in the discharge instructions of this report. Patient voices understanding and agrees with the treatment plan. Impression Impression: Primary Impression: Cellulitis Qualified Codes: L03.116 - Cellulitis of left lower limb Additional Impression: Brown recluse spider bite Qualified Codes: T63.331A - Toxic effect of venom of brown recluse spider, accidental (unintentional), initial encounter Disposition: HOME, SELF-CARE Condition: Improved Departure-Patient Inst. Decision time for Depature: 21:15 Referrals: ACOSTA PAYAN MD (PCP/Family) Primary Care Physician Patient Instructions: Cellulitis (Skin Infection), Adult (DC), Spider Bites Add. Discharge Instructions: All discharge instructions reviewed with patient and/or family. Voiced understanding. Medications as instructed. Continue usual home medications. Tylenol jrno-ryb-vrqbyob as directed for pain. Claritin, Zyrtec, or [place] [id number] as directed for rash and itching. Benadryl 25 mg by mouth every 4 hours as needed for breakthrough itching and rash. Elevate the left lower extremity on pillows above the level of the heart. Shower with antibacterial soap. Follow-up with Dr. Payan's office tomorrow for wound recheck. If unable to be seen by Dr. Payan's office, return to the emergency department for recheck of the wound. Return immediately to the emergency department for worsened pain, swelling, redness, fever, drainage, or any other concerns. Scripts Dapsone (Dapsone) 25 Mg Tablet 50 MG PO BID, #20 TAB 0 Refills Prov: SERGIO HOLLOWAY 03/28/17 Clindamycin HCl (Clindamycin HCl) 300 Mg Capsule 300 MG PO QID, #40 CAP 0 Refills Prov: SERGIO HOLLOWAY 03/28/17 Sulfamethoxazole/Trimethoprim (Bactrim Ds Tablet) 1 Each Tablet 1 EACH PO BID, #20 TAB 0 Refills Prov: SERGIO HOLLOWAY 03/28/17 SERGIO HOLLOWAY March 28, 2017 19:53
[2017-03-28] MEDS ORDERED: TETANUS,DIPTH,PERTUSS P/F (BOOSTRIX) 0.5 ML VIAL IM ONE (19:58)
[2017-03-28] MEDS ORDERED: TETANUS,DIPTH,PERTUSS P/F (BOOSTRIX) 0.5 ML VIAL IM STA (20:01)
[2017-03-28 20:28] LABS: BASOPHILS % (AUTO) 0 % (0-10); EOSINOPHILS # (AUTO) 0.2 10^3/uL (0.0-0.3); EOSINOPHILS % (AUTO) 3 % (0-10); LYMPHOCYTES # (AUTO) 2.3 X 10^3 (1.0-4.0); LYMPHOCYTES % (AUTO) 29 % (12-44); MEAN CORPUSCULAR HEMOGLOBIN 30 PG (25-34); MEAN CORPUSCULAR HGB CONC 33 G/DL (32-36); MEAN CORPUSCULAR VOLUME 91 FL (80-99); MEAN PLATELET VOLUME 11.5 FL (7.4-10.4); MONOCYTES # (AUTO) 0.8 X 10^3 (0.0-1.0); MONOCYTES % (AUTO) 10 % (0-12); NEUTROPHILS # (AUTO) 4.8 X 10^3 (1.8-7.8); NEUTROPHILS % (AUTO) 59 % (42-75); PLATELET COUNT 230 10^3/uL (130-400); RED BLOOD COUNT 4.31 10^6/uL (4.35-5.85); RED CELL DISTRIBUTION WIDTH 14.7 % (10.0-14.5); WHITE BLOOD COUNT 8.1 10^3/uL (4.3-11.0)
[2017-03-28 20:50] LABS: ALBUMIN 3.9 G/DL (3.2-4.5); BILIRUBIN,TOTAL 0.3 MG/DL (0.1-1.0); CALCIUM 9.5 MG/DL (8.5-10.1); CREATININE SERUM 1.17 MG/DL (0.60-1.30); POTASSIUM 3.9 MMOL/L (3.6-5.0); TOTAL PROTEIN 6.7 G/DL (6.4-8.2); hs C REACTIVE PROTEIN 0.19 MG/DL (0.00-0.50)
[2017-03-28] MEDS ORDERED: CLINDAMYCIN INJECTION 900 MG in NS (IVPB) 50 ML IV ONE (21:15)
[2017-03-28] MEDS ORDERED: DAPS25TA2 PO (21:20)
[2017-03-28] MEDS ORDERED: SULF1TAB35 PO (21:20)
[2017-03-28] MEDS ORDERED: CLIN300C11 PO (21:20)
[2017-03-28 22:23] VITALS: BP 167/88
== END 2017-03-28 22:23 | disposition home or self-care (01) ==
LOC: EDUNIT# 19:08 → ER 19:10
DX: T63.331A Toxic effect of venom of brown recluse spider, accidental (unintentional), initial encounter (principal); L03.116 Cellulitis of left lower limb; Z23 Encounter for immunization; I10 Essential (primary) hypertension; Z79.82 Long term (current) use of aspirin; Z79.899 Other long term (current) drug therapy; Z95.5 Presence of coronary angioplasty implant and graft
CPT/HCPCS: 36415; 80053; 85025; 86141; 90715

== ENCOUNTER → 2017-06-14 | Outpatient (CLI) | payer MEDICARE, OTHER ==
[~2017-06-14] VITALS: Ht 162.6 cm; Wt 63.7 kg
[~2017-06-14] MED LIST changes: +CLIN300C11 PO; +DAPS25TA2 PO; +DENO60DI SQ; +DENOSUMAB 60 MG/1 ML (PROLIA) SQ SCH; +DULO60CA6 PO; +FURO-124 PO; +PSYL660P17 PO; +SULF1TAB35 PO; +potassium PO
[2017-06-14 13:36] VITALS: BP 121/74
== END ==
LOC: SDC 13:00
PROVIDERS: ATTEND Family Medicine
DX: M81.0 Age-related osteoporosis without current pathological fracture (principal)
CPT/HCPCS: 96372

== ENCOUNTER → 2017-12-14 | Outpatient (CLI) | payer MEDICARE, OTHER ==
[~2017-12-14] VITALS: Ht 162.6 cm; Wt 63.7 kg
[2017-12-14 14:57] VITALS: BP 134/66
== END ==
LOC: SDC 13:11
PROVIDERS: ATTEND Nurse Practitioner Family
DX: M81.0 Age-related osteoporosis without current pathological fracture (principal)
CPT/HCPCS: 96372

== ENCOUNTER 2018-12-25 11:52 | Day surgery (SDC) | payer MEDICARE, OTHER ==
[2018-12-25] VITALS (10 sets, daily range): BP systolic 128–170; BP diastolic 75–95
[~2018-12-25] VITALS: Ht 162.6 cm; Wt 66.2 kg
[~2018-12-25 11:52] MED LIST changes: -DENOSUMAB 60 MG/1 ML (PROLIA) SQ SCH; +FENO145T37 PO
[2018-12-25] MEDS ORDERED: NS IV 1000 ML 3,000 ML ONE (12:03)
[2018-12-25] MEDS ORDERED: HEParin 1000 UNIT/ML (10ML VIAL) FOR BOLUS ONE (12:03)
[2018-12-25] MEDS ORDERED: LIDOCAINE 1% INJ 20 ML 20 ML VIAL ONE ×2 (12:03→14:34)
[2018-12-25] MEDS ORDERED: NS IV 1000 ML 1,000 ML IV SCH (12:30)
[2018-12-25 12:34] LABS: HEMOGLOBIN 12.9 G/DL (11.5-16.0); MEAN PLATELET VOLUME 11.2 FL (7.4-10.4); RED CELL DISTRIBUTION WIDTH 14.9 % (10.0-14.5); WHITE BLOOD COUNT 6.7 10^3/uL (4.3-11.0)
[2018-12-25 12:44] LABS: PROTHROMBIN TIME PATIENT 13.6 SEC (12.2-14.7)
[2018-12-25 12:51] LABS: ALBUMIN 4.2 GM/DL (3.2-4.5); BILIRUBIN,TOTAL 0.6 MG/DL (0.1-1.0); CALCIUM 10.1 MG/DL (8.5-10.1); CREATININE SERUM 1.04 MG/DL (0.60-1.30); POTASSIUM 3.9 MMOL/L (3.6-5.0); TOTAL PROTEIN 7.2 GM/DL (6.4-8.2)
[2018-12-25] MEDS ORDERED: LIOT5TAB3 PO ×2 (13:00)
[2018-12-25] MEDS ORDERED: MULT-1029 PO (13:00)
[2018-12-25] MEDS ORDERED: OMG1KC PO (13:00)
[2018-12-25] MEDS ORDERED: LEVO112T55 PO (13:00)
[2018-12-25] MEDS ORDERED: GLUC-219 PO (13:00)
[2018-12-25] MEDS ORDERED: CALC-722 PO (13:00)
[2018-12-25] MEDS ORDERED: POTA99TA21 PO (13:06)
[2018-12-25] MEDS ORDERED: ACET-2469 PO (13:06)
--- NOTE | 2018-12-25 13:07 | NUR ---
PATIENT HAD MOST OF HER MEDICATION BOTTLES WELL A DETAILED MEDICATION LIST. SHE VERIFIED HOW SHE TAKES EACH MEDICATION.
--- NOTE | 2018-12-25 13:23 | Diagnostic Imaging Report ---
INDICATION: Preop for heart cath, coronary artery disease. COMPARISON: 10/25/2015. FINDINGS: A single view of the chest demonstrates stable cardiac enlargement without overt pulmonary edema. Chronic interstitial changes are seen in both lungs. There is no pneumothorax or large effusion. Chronic rib deformities are seen bilaterally. IMPRESSION: Cardiac enlargement without pulmonary edema or infiltrate. Dictated by: Dictated on workstation # [id number]
[2018-12-25] MEDS ORDERED: MIDAZOLAM 5 MG/5 ML (VERSED) VIAL ONE (13:40)
[2018-12-25] MEDS ORDERED: fentaNYL INJECTION 100 MCG/2 ML AMP ONE (13:40)
--- NOTE | 2018-12-25 14:35 | Cardiac Procedure Note-CS/ASA ---
Pre-Procedure Note Pre-Op Procedure Note H&P Reviewed The H&P was reviewed, patient examined and no changes noted. Date H&P Reviewed: Dec 25, 2018 Time H&P Reviewed: 14:34 Conscious Sedation Pre-Proced Time 14:34 ASA Score 3 For ASA 3 and 4: Consider anesthesia and medical clearance. Also, for patients with a history of failed moderate sedation consider anesthesia. Airway Lungs Heart ASA score ASA 1: a normal healthy patient ASA 2: a patient with a mild systemic disease (mid diabetes, controlled hypertension, obesity x ASA 3: a patient with a severe systemic disease that limits activity (angina , COPD, prior Myocardial infarction) ASA 4: a patient with an incapacitating disease that is a constant threat to life (CHF, renal failure) ASA 5: a moribund patient not expected to survive 24 hrs. (ruptured aneurysm) ASA 6: a declared brain- patient whose organs are being harvested. For emergent operations, add the letter E after the classification Mallampati Classification Grade 3 Sedation Plan Analgesia, Amnesia, Plan communicated to team members, Discussed options with patient/fam, Discussed risks with patient/fam The patient is an appropriate candidate to undergo the planned procedure, sedation, and anesthesia. The patient immediately re-assessed prior to indication. NARENDRA CURRIE MD Dec 25, 2018 14:35
[2018-12-25] MEDS ORDERED: NITRO DRIP 25000 MCG/D5W 250 ML IV ONE (14:51)
[2018-12-25] MEDS ORDERED: PATIENT MAY USE OWN MEDS, ALL PO SCH (15:00)
--- NOTE | 2018-12-25 15:02 | Discharge Inst-Post CATH ---
Discharge Inst-CATH/EP Post Cardiac Cath/EP D/C Inst Follow Up/Plan Appointment with Dr. Turk's office in 2-4 weeks CARDIAC CATH DISCHARGE INSTRUCTIONS *Hold Metformin for 48 hours post heart cath. ACTIVITY * Go Home directly and rest. * Limit activity of the leg (or wrist if it was used) for 7 days including aerobics, swimming, jogging, bicycling, etc. * Restrict stair-climbing for 7 days if possible, if not, climb up with your non -cath leg, then bring together on the same step. * Avoid lifting, pushing, pulling or excessive movement of the affected extremity for 7 days. * Customary sexual activity may be resumed after 2 days-use caution not to use a position that strains or causes pain to the affected extremity. * No driving for 24 hours. * NO SMOKING. * Avoid straining for bowel movements for 7 days. * Gentle walking on level ground is allowed. * Returning to work will depend on the type of procedure and the results. Your doctor will discuss this with you. CALL YOUR DOCTOR FOR ANY OF THE FOLLOWING: *If bleeding from the puncture site occurs- Apply gentle pressure to site with clean cloth and call your doctor or EMS. * If a knot or lump forms under the skin, increases in size, or causes pain. * If bruising appears to be worsening or moving further down your leg instead of disappearing. * Temperature above 101 F. CARE OF YOUR GROIN INCISION; * Bruising or purple discoloration of the skin near the puncture site is common. * You may shower only, no bathtub bathing for 5 days. Be careful to avoid slipping as your leg may feel stiff. * If a closure device was used on your femoral artery, please see the attached guide regarding care of the device and your leg. * Leave the dressing on, until removed by office staff. CARE OF YOUR WRIST INCISION; * Bruising or purple discoloration of the skin near the puncture site is common. * You may shower. * DO NOT submerge wrist. * Leave dressing on, until removed by office staff.. NARENDRA TURK MD Dec 25, 2018 15:02
--- NOTE | 2018-12-25 15:09 | Cardiac Cath Report ---
Cardiac Cath Report Physician (s)/Burner Hand (s) Physician NARENDRA CURRIE MD Pre-Procedure Diagnosis Pre-Procedure Diagnosis: peripheral arterial disease, coronary artery disease Post-Procedure Note Procedure Start Date: Dec 25, 2018 Name of Procedure: left heart catheterization Abdominal aortogram with bilateral runoff Third order Additional imaging Findings/Procedure Note PROCEDURE NOTE: 88 years old lady with history of coronary artery disease, has been having chest pain, she was scheduled for cardiac catheterization, she has been complaining of right leg pain and feeling cold in her foot, TBI was abnormal, I was planning to proceed with peripheral angiogram after the coronary angiogram. After explaining the procedure to the patient, all pros and cons were explained , all questions were answered. The patient signed the consent and then she was placed on the cardiac catheterization laboratory. Groin was prepped SL fashion local anesthesia was used. Sheath placed in the right femoral artery. Harlan right and left catheter were used to access the coronary system. Pigtail was used to access the left ventricular cavity. Left ventricular gram was done then the pullback LV to aorta was done, abdominal aortogram with bilateral runoff was done. The sheath in the right groin was removed and closure device was used then access to the left groin was made and I advanced a rim catheter then a stork wire and exchanged over a straight wire down to the trifurcation and did multiple separate imaging, very slow flow in the right lower extremity was noted then I gave her nitroglycerin 200 g and repeat angiogram showed occlusion at the distal anterior tibial artery, the catheter was removed, sheath was removed from the left groin and closure device was used FINDINGS: Hemodynamics LV 162/24, end-diastolic pressure of 24 Aorta 156/72 mean of 103 ANATOMY: Left Main has mild disease nonobstructive disease Left Anterior Descending is tortuous with mild disease nonobstructive disease Left Circumflex has mild to moderate disease nonobstructive disease Right Coronory Artery is dominant, calcified with mild disease nonobstructive disease LV Gram is prominent with diffuse left ventricular hypokinesia estimated ejection fraction 45 percent Abdominal aortogram was runoff, atherosclerotic disease in the abdominal aorta, both renal arteries are normal, inferior mesenteric artery is normal, flow in the lower extremity is slowed down to the trifurcation, mild to moderate disease nonobstructive disease Right leg runoff column multiple imaging were done with this straight catheter at the popliteal level and at the trifurcation and repeat angiogram after injection of nitroglycerin intra-arterial which showed total occlusion of the anterior tibial artery distally at the foot level, very small artery, the posterior tibial and peroneal arteries are patent CONCLUSION: 1. Calcified coronary system with zaff-de-sameimyq disease nonobstructive disease 2. Prominent left ventricle wouldn't systolic function mildly reduced estimated ejection fraction 45 percent 3. Hypertensive changes in the abdominal aorta and small vessel disease peripheral arterial disease 4. 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 DISCUSSION AND RECOMMENDATION: Medical therapy is recommended, I do not recommend intervention on the anterior tibial artery due to the fact that it is distally at the foot level and the artery is extremely small. There is no ischemic ulcer. Anesthesia Type: Conscious Sedation Estimated blood loss (mL): 30 ml Contrast Amount: 120 ml Total Radiation Dose: 462 mGy Post-Procedure Diagnosis Post-operative diagnosis: Peripheral arterial disease Coronary artery disease Shortness of breath Hypertension NARENDRA CURRIE MD Dec 25, 2018 15:09
[2018-12-25] MEDS: NS IV 1000 ML 1,000 ML IV SCH ×2 (16:36→22:09)
[2018-12-25] MEDS ORDERED: NON-FORMULARY MEDICATION 1 EA EA (Acetaminophen/Diphenhydramine (Tylenol Pm Ex-Strength Ca PO PRN (16:45)
[2018-12-25] MEDS ORDERED: PATIENT MAY USE OWN MEDS, ALL MC SCH (17:00)
[2018-12-25] MEDS ORDERED: ACETAMINOPHEN 500 MG TAB (TYLENOL) PO PRN (17:45)
[2018-12-25] MEDS ORDERED: diphenhydrAMINE 25 MG TAB (BENADRYL) PO PRN (17:45)
[2018-12-25] MEDS ORDERED: CITRACAL PO SCH (18:00)
[2018-12-25] MEDS ORDERED: LIOTHYRONINE 5 MCG TABLET PO SCH (18:00)
[2018-12-25] MEDS ORDERED: D3 PO SCH (18:00)
[2018-12-25] MEDS: LEVOTHYROXINE 112 MCG (LEVOTHROID) TAB PO SCH (18:17)
[2018-12-25] MEDS: CARVEDILOL 6.25 MG (COREG) TAB PO SCH (18:32)
[2018-12-25] MEDS ORDERED: OMEPRAZOLE 20 MG (PriLOSEC) CAP NON-FORMULARY PO SCH (21:00)
[2018-12-25] MEDS ORDERED: FENOFIBRATE 145 MG TABLET PO SCH (21:00)
[2018-12-25] MEDS ORDERED: DULOXETINE 60 MG CAPSULE PO SCH (21:00)
[2018-12-25] MEDS ORDERED: OMEGA 3 (FISH OIL) 1000 MG CAP PO SCH (21:00)
[2018-12-26] VITALS: BP 146/80
[2018-12-26 04:19] VITALS: BP 169/88
[2018-12-26] MEDS: LEVOTHYROXINE 112 MCG (LEVOTHROID) TAB PO SCH (06:12)
[2018-12-26] MEDS ORDERED: LIOTHYRONINE 5 MCG TABLET PO SCH (07:00)
[2018-12-26 07:50] VITALS: BP 146/87
--- NOTE | 2018-12-26 07:57 | Cardiology Progress Note ---
Subjective Date Seen by Provider: Dec 26, 2018 Time Seen by Provider: 07:55 Subjective/Events-last exam patient is sitting in a chair, groin is healed well, no new complaint Review of Systems General: No Chills, No Night Sweats, No Fatigue, No Malaise, No Appetite, No Other HEENT: No Head Aches, No Visual Changes, No Eye Pain, No Ear Pain, No Dysphasia , No Sinus Congestion, No Post Nasal Drip, No Sore Throat, No Other Pulmonary: No Dyspnea, No Cough, No Pleuritic Chest Pain, No Other Cardiovascular: No: Chest Pain, Palpitations, Orthopnea, Paroxysmal Noc. Dyspnea, Edema, Lt Headedness, Other Objective-Cardiology Exam Last Set of Vital Signs Vital Signs 12/25/18 21:00 O2 Flow Rate 2.00 Capillary Refill : Less Than 3 Seconds I&O Intake and Output 12/26/18 00:00 Intake Total 1350 ml Output Total 1250 ml Balance 100 ml Intake Oral 350 ml IV Total 1000 ml Output Urine Total 1250 ml General: Alert, Oriented X3, Cooperative HEENT: Atraumatic, PERRLA Neck: Supple, No JVD, No Thyromegaly Lungs: Clear to Auscultation, Normal Air Movement Heart: Regular Rate, Normal S1, Normal S2, No Murmurs Abdomen: Normal Bowel Sounds, Soft, No Tenderness, No Hepatosplenomegaly, No Masses Extremities: No Clubbing, No Cyanosis, No Edema, Normal Pulses, No Tenderness/ Swelling Skin: No Rashes, No Breakdown, No Significant Lesion Neuro: Normal Gait, Normal Speech, Strength at 5/5 X4 Ext, Normal Tone, Sensation Intact Psych/Mental Status: Mental Status NL, Mood NL Results Lab Laboratory Tests 12/25/18 12:20 12/25/18 12:23 A/P-Cardiology Admission Diagnosis Coronary artery disease Peripheral arterial disease Hypertension Hyperlipidemia Assessment/Plan Coronary artery disease, cardiac catheterization done, moderate disease Peripheral arterial disease, small vessel disease, distal anterior tibial artery on the right is occluded, conservative management Hypertension Hyperlipidemia NARENDRA CURRIE MD Dec 26, 2018 07:57
[2018-12-26] MEDS: CARVEDILOL 6.25 MG (COREG) TAB PO SCH (08:26)
--- NOTE | 2018-12-26 08:45 | NUR ---
REMY NAVAS demonstrates understanding of discharge instructions and accurately returns instructions upon questioning. Copy of Post-Discharge Instructions and Medication Discharge Instructions given to pt. REMY NAVAS is able to manage continuing needs after discharge. Patients belongings returned to pt. Skin dry and intact; no breakdown noted. Patient discharged from [facility] on 12/26/18 at 0845. REMY NAVAS left floor via wc, accompanied by staff/family.
[2018-12-26] MEDS ORDERED: NON-FORMULARY MEDICATION 1 EA EA (Potassium Gluconate (Potassium) 99 MG) PO SCH (09:00)
[2018-12-26] MEDS ORDERED: FUROSEMIDE 40 MG (LASIX) TAB PO SCH (09:00)
[2018-12-26] MEDS ORDERED: ASPIRIN E.C. 81 MG (ECOTRIN) TAB PO SCH (12:00)
[2018-12-27] MEDS ORDERED: LEVOTHYROXINE 112 MCG (LEVOTHROID) TAB PO SCH (06:30)
== END 2018-12-26 08:45 | disposition home or self-care (01) ==
LOC: CATH 11:52 → ICU 15:00 → CATH 15:22
PROVIDERS: ATTEND Internal Medicine Cardiovascular Disease
DX: I25.10 Atherosclerotic heart disease of native coronary artery without angina pectoris (principal); I70.211 Atherosclerosis of native arteries of extremities with intermittent claudication, right leg; I70.92 Chronic total occlusion of artery of the extremities; I13.0 Hypertensive heart and chronic kidney disease with heart failure and stage 1 through stage 4 chronic kidney disease, or unspecified chronic kidney disease; I50.9 Heart failure, unspecified; N18.9 Chronic kidney disease, unspecified; E78.2 Mixed hyperlipidemia; E03.9 Hypothyroidism, unspecified; I44.7 Left bundle-branch block, unspecified; I44.0 Atrioventricular block, first degree; Z79.82 Long term (current) use of aspirin; Z79.899 Other long term (current) drug therapy
CPT/HCPCS: 36248; 36415; 71045; 75630; 80053; 80061; 85027; 85610; 85730; 87081; 93005; 93458

== ENCOUNTER → 2019-01-21 | Outpatient (CLI) | payer MEDICARE, OTHER ==
[~2019-01-21] MED LIST changes: +CALC-722 PO; +GLUC-219 PO; +LIOT5TAB3 PO; +MULT-1029 PO; +POTA99TA21 PO
--- NOTE | 2019-01-21 13:22 | Diagnostic Imaging Report ---
INDICATION: Postmenopausal screening. COMPARISON: None. FINDINGS: AP Spine L1-L4: [BMD (g/cm2): 0.9999] [T-Score: -1.7] [Z-Score: 0.3] [BMD Previous: N/A] [BMD % Change: N/A] Right wrist/radius: [BMD (g/cm2): 0.348] [T-Score: -6.1] [Z-Score: -2.5] *Indicates significant change from prior examination based on 95% confidence level. World Health Organization criteria for BMD interpretation classify patients as Normal (T-score at or above -1.0), Osteopenic (T-score between -1.0 and -2.5) or Osteoporotic (T-score at or below -2.5). LIMITATIONS AND MODIFICATION: None. FRACTURE RISK (FRAX SCORE): The ten year probability of (%): Major Osteoporotic Fracture: [N/A] Hip Fracture: [N/A] IMPRESSION: 1. Osteoporosis. 2. Baseline examination. 3. See below National Osteoporosis Foundation guidelines on when to potentially initiate pharmacologic therapy. Based on the National Osteoporosis Foundation Guidelines, pharmacologic treatment should be initiated in any of the following, unless clinical conditions suggest otherwise: * Any patient with prior fragility fracture of the hip or vertebrae. A spine fracture indicates 5X risk for subsequent spine fracture and 2X risk for subsequent hip fracture. * Osteoporosis (T-score <-2.5). * Postmenopausal women and men age 50 and older with low bone mass/osteopenia (T-score between -1.0 and -2.5) by DXA and 10-year major osteoporotic fracture greater than 20% or a 10-year probability of hip fracture greater than 3%. These fracture risks are supplied above in the FRAX score, if applicable. * Clinician judgment and/or patient preferences may indicate treatment for people with 10-year fracture probabilities above or below these levels. Dictated by: Dictated on workstation # [id number]
== END ==
LOC: RAD 08:40
PROVIDERS: ATTEND Family Medicine
DX: Z13.820 Encounter for screening for osteoporosis (principal); M81.0 Age-related osteoporosis without current pathological fracture; Z78.0 Asymptomatic menopausal state
CPT/HCPCS: 77080

== ENCOUNTER → 2019-06-23 | Outpatient (CLI) | payer MEDICARE, OTHER ==
[~2019-06-23] MED LIST changes: +CATHETER FLUSH 10 ML SYR IV PRN; +HOLD METFORMIN - RECEIVED CONTRAST 20 ML VIAL IV SCH; +IOHEXOL 350 MG/ML 100 ML (OMNIPAQUE 350) VIAL IV ONE; +LIOT5TAB PO; -LIOT5TAB3 PO; +NS 100 ML (IVPB) BAG IV ONE; +OMEP20CA13 PO
[2019-06-23 12:03] LABS: BUN/CREATININE RATIO 26; CREATININE SERUM 0.84 MG/DL (0.60-1.30); GFR ESTIMATED > 60
--- NOTE | 2019-06-23 14:38 | Diagnostic Imaging Report ---
PROCEDURE: CT chest with contrast only. TECHNIQUE: Multiple contiguous axial images were obtained through the chest after administration of intravenous contrast. Auto Exposure Controls were utilized during the CT exam to meet ALARA standards for radiation dose reduction. DATE: June 23, 2019. COMPARISON: Chest radiographs December 25, 2018. CT chest, abdomen and pelvis March 05, 2015. INDICATION: 88-year-old female, dyspnea. Shortness of breath and cough. FINDINGS: There is no identified pulmonary nodule or lung mass. There is respiratory motion artifact present. There are predominantly linear opacities in the right and left lower lobe likely relating to scarring which are present previously. There is no additional airspace consolidation. There is no pneumothorax. There is no pleural effusion. The more central airways are patent. There is no identified pulmonary embolus. The main pulmonary artery is normal in caliber. The heart is not grossly enlarged. There is no pericardial effusion. There are atherosclerotic calcifications. There is no identified abnormally enlarged mediastinal, hilar, or axillary lymph node which meets CT size criteria for adenopathy. There is an incompletely imaged low-attenuation left renal lesion measuring 1.8 cm in size on axial image 148. Internal attenuation is measured at 37 Hounsfield units. This is indeterminate. There is an additional 8 mm left renal lesion which is indeterminate. This previously measured 6 mm in size in February 2015. There is questionable wall thickening of proximal aspect of the stomach. The bones are demineralized. 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 There are multiple bilateral rib fractures. There are compression deformities of T7 and T8 with near complete vertebral body height loss at both levels. These are new since comparison CT. These do appear to be present previously on September 16, 2015 chest radiographs. IMPRESSION: CT CHEST. 1. Dependent linear opacities in the lung bases which are unchanged and likely relate to scarring. No new alveolar consolidative process. 2. Multiple bilateral rib fractures, some of which appear chronic in age and some are age indeterminate. 3. Compression deformities of T7 and T8 which do appear to be present on the September 16, 2015. 4. Questionable wall thickening of the proximal stomach. Differential diagnostic considerations would include infectious and inflammatory causes of gastritis and possibly malignancy. 5. Indeterminate left renal lesions. Dictated by: Dictated on workstation # [id number]
== END ==
LOC: RAD 11:26
PROVIDERS: ATTEND Nurse Practitioner Family
DX: S22.43XA Multiple fractures of ribs, bilateral, initial encounter for closed fracture (principal); M43.8X4 Other specified deforming dorsopathies, thoracic region; N28.9 Disorder of kidney and ureter, unspecified; R91.8 Other nonspecific abnormal finding of lung field; J44.9 Chronic obstructive pulmonary disease, unspecified
CPT/HCPCS: 36415; 71260; 82565; 84520

== ENCOUNTER → 2019-06-23 | Outpatient (CLI) | payer MEDICARE, OTHER ==
[~2019-06-23] MED LIST changes: -CATHETER FLUSH 10 ML SYR IV PRN; -HOLD METFORMIN - RECEIVED CONTRAST 20 ML VIAL IV SCH; -IOHEXOL 350 MG/ML 100 ML (OMNIPAQUE 350) VIAL IV ONE; -NS 100 ML (IVPB) BAG IV ONE
== END ==
LOC: CARD 11:28
PROVIDERS: ATTEND Physician Assistant
DX: I34.0 Nonrheumatic mitral (valve) insufficiency (principal); I13.0 Hypertensive heart and chronic kidney disease with heart failure and stage 1 through stage 4 chronic kidney disease, or unspecified chronic kidney disease; I25.10 Atherosclerotic heart disease of native coronary artery without angina pectoris; N18.9 Chronic kidney disease, unspecified; I65.29 Occlusion and stenosis of unspecified carotid artery
CPT/HCPCS: 93306

== ENCOUNTER → 2019-07-09 | Outpatient (CLI) | payer MEDICARE, OTHER ==
[~2019-07-09] MED LIST changes: +RT-ALBUTEROL SULF 2.5 MG/3 ML PRE-MIX VIAL INH ONE
== END ==
LOC: RT 15:44
PROVIDERS: ATTEND Nurse Practitioner Family
DX: J44.9 Chronic obstructive pulmonary disease, unspecified (principal)
CPT/HCPCS: 94060; 94726; 94729

== ENCOUNTER → 2019-07-28 | Outpatient (CLI) | payer MEDICARE, OTHER ==
[~2019-07-28] MED LIST changes: -RT-ALBUTEROL SULF 2.5 MG/3 ML PRE-MIX VIAL INH ONE
--- NOTE | 2019-07-28 14:39 | Diagnostic Imaging Report ---
INDICATION: Thoracic back pain. COMPARISON: CT chest dated 06/23/2019. FINDINGS: Frontal and lateral views of the thoracic spine were obtained. Visualization of the upper thoracic spine is limited on the lateral projection. Evaluation of vertebral bodies demonstrate vertebra plana height loss of T7 and T8. This however is stable when compared to 06/23/2019. Upper thoracic vertebral bodies are partially obscured on the lateral views, but no new compression deformities of thoracic spine are identified. There is multilevel intervertebral disc height loss as well as anterior and posterior disc osteophyte complex formations. Included portions of the lungs are clear. Multiple old left-sided rib fractures are noted. IMPRESSION: 1. Nonacute compression deformities of T7 and T8. 2. No new acute fracture or dislocation of the thoracic spine. 3. Multilevel degenerative changes. Dictated by: Dictated on workstation # [id number]
== END ==
LOC: RAD 13:40
PROVIDERS: ATTEND Nurse Practitioner Family
DX: M47.814 Spondylosis without myelopathy or radiculopathy, thoracic region (principal); M43.8X4 Other specified deforming dorsopathies, thoracic region
CPT/HCPCS: 72072